=== PATIENT | male | born 1965 | race Caucasian/White ===

== ENCOUNTER 2020-02-19 07:15 | Emergency (ER) | payer MEDICARE, OTHER ==
[~2020-02-19] VITALS: Ht 182.9 cm; Wt 100.0 kg
[~2020-02-19 07:15] MED LIST: HTN MED DAILY PO
[2020-02-19] MEDS ORDERED: IV NORMAL SALINE 1,000ML 1,000 ML IV SCH (07:19)
--- NOTE | 2020-02-19 07:23 | PHYS DOC ---
Past History Past Medical History: COPD, Diabetes, Hypertension, Other Past Surgical History: No Surgical History Smoking: Cigar Alcohol Use: None General Adult EDM: Chief Complaint: chest pain HPI: HPI: Patient is a 54 year old male who presents for evaluation of chest pain that started at 4 AM today. He states he did not wake him up because he had difficulty sleeping all night. He is complaining of shortness of air and sweats as well. About 1 hour ago his pain became significantly worse. Two 81 mg dose aspirins were taken prior to arrival. Patient spouse brought him into the hospital for evaluation. Patient had cardiac testing about 1 year ago but no stress test. Other risk factors include diabetes, COPD and patient does smoke cigars. Patient does not have a known cardiac history. Patient rates his pain as 5/10 at this time Review of Systems: Review of Systems: Constitutional: Denies fever or chills Eyes: Denies change in visual acuity HENT: Denies nasal congestion or sore throat Respiratory: Denies cough has shortness of breath Cardiovascular: has chest pain no edema GI: Denies abdominal pain, has nausea, no vomiting, bloody stools or diarrhea : Denies dysuria Musculoskeletal: Denies back pain or joint pain Integument: Denies rash Neurologic: Denies headache, focal weakness or sensory changes Endocrine: Denies polyuria or polydipsia Lymphatic: Denies swollen glands Psychiatric: Denies depression or anxiety Heart Score: HEART Score for Chest Pain: HEART Score for Chest Pain Response (Comments) Value History Highly Suspicious [address] Depression 2 Age >45 - < 65 1 Risk Factors >3 Risk Factors or Hx CAD 2 Troponin >1-<3x Normal Limit 1 Total 8 Risk Factors: Risk Factors: DM, Current or recent (<one month) smoker, HTN, HLP, family history of CAD, obesity. Risk Scores: Score 0 - 3: 2.5% MACE over next 6 weeks - Discharge Home Score 4 - 6: 20.3% MACE over next 6 weeks - Admit for Clinical Observation Score 7 - 10: 72.7% MACE over next 6 weeks - Early Invasive Strategies Current Medications: Current Meds: Current Medications Medications (Trade) Dose Ordered Sig/Margo Start Time Stop Time Status Last Admin Dose Admin Aspirin (Aspirin Chewable) 162 mg 1X ONCE 02/19/20 07:30 02/19/20 07:31 UNV Morphine Sulfate (Morphine 4mg Syringe) 4 mg 1X ONCE 02/19/20 07:30 02/19/20 07:31 UNV Sodium Chloride 1,000 ml @ 100 mls/hr Q10H 02/19/20 07:19 02/19/20 17:18 UNV Allergies: Allergies: Allergies Coded Allergies Type Severity Reaction Last Updated Verified No Known Drug Allergies 12/21/13 No Physical Exam: PE: Constitutional: Well developed, well nourished, modeate distress, mild toxic appearance. [] HENT: Normocephalic, atraumatic, bilateral external ears normal, oropharynx moist, no oral exudates, nose normal. [] Eyes: PERRL, EOMI, conjunctiva normal, no discharge. [] Neck: Normal range of motion, no tenderness, supple, no stridor. [] Cardiovascular:Heart rate regular rhythm, no murmur [] Lungs & Thorax: Bilateral breath sounds clear to auscultation [] Abdomen: Bowel sounds normal, soft, no tenderness, no masses, no pulsatile masses. [] Skin: Warm, diaphoretic, no erythema, no rash. [] Back: No tenderness. [] Extremities: No tenderness, no cyanosis, no clubbing, ROM intact, no edema. [] Neurologic: Alert and oriented X 3, normal motor function, normal sensory function, no focal deficits noted. [] Psychologic: Affect normal, judgement normal, mood anxious. [] Current Patient Data: Labs: Laboratory Tests Test 02/19/20 07:22 White Blood Count 9.8 x10^3/uL Red Blood Count 4.65 x10^6/uL Hemoglobin 15.2 g/dL Hematocrit 44.2 % Mean Corpuscular Volume 95 fL Mean Corpuscular Hemoglobin 33 pg Mean Corpuscular Hemoglobin Concent 35 g/dL Red Cell Distribution Width 13.1 % Platelet Count 259 x10^3/uL Neutrophils (%) (Auto) 74 % Lymphocytes (%) (Auto) 18 % Monocytes (%) (Auto) 7 % Eosinophils (%) (Auto) 1 % Basophils (%) (Auto) 0 % Neutrophils # (Auto) 7.3 x10^3uL Lymphocytes # (Auto) 1.8 x10^3/uL Monocytes # (Auto) 0.7 x10^3/uL Eosinophils # (Auto) 0.0 x10^3/uL Basophils # (Auto) 0.0 x10^3/uL Current Medications Medications (Trade) Dose Ordered Sig/Margo Route PRN Reason Start Time Stop Time Status Last Admin Dose Admin Aspirin (Aspirin Chewable) 162 mg 1X ONCE PO 02/19/20 07:30 02/19/20 07:31 DC 02/19/20 07:33 Sodium Chloride 1,000 ml @ 100 mls/hr Q10H IV 02/19/20 07:19 02/19/20 17:18 02/19/20 07:33 Morphine Sulfate (Morphine 4mg Syringe) 4 mg 1X ONCE IV 02/19/20 07:30 02/19/20 07:31 DC 02/19/20 07:32 Ondansetron HCl (Zofran) 4 mg 1X ONCE IVP 02/19/20 07:30 02/19/20 07:31 DC 02/19/20 07:32 Nitroglycerin (Nitrostat) 0.4 mg PRN Q5MIN PRN SL CHEST PAIN 02/19/20 07:30 UNV 02/19/20 07:40 Heparin Sodium (Porcine) (Heparin Sodium) 4,000 unit 1X ONCE IV 02/19/20 07:30 02/19/20 07:31 UNV 02/19/20 07:40 EKG: EKG: EKG read at 7:[address] segment elevation in the inferior leads. This is consistent with a STEMI rate is 63 [] Radiology/Procedures: Radiology/Procedures: CXR: read by me at bedside, no acute findings[] Course & Med Decision Making: Course & Med Decision Making Pertinent Labs and Imaging studies reviewed. (See chart for details) Code STEMI activated at 7:21 AM. Patient okay with going to [facility] [] 0729 Dr. Krishnan is the accepting Superintendent Distribution at [facility]. Agreed with treatment plan. Will sent right to the geotechnical laboratory technician. EMS en route. Heparin load 4000 units, aspirin to bring him up to full dose aspirin, nitroglycerin, morphine and Zofran given 0737 EMS at bedside loading patient for transfer. 0742 EMS leaving now. Dragon Disclaimer: Dragon Disclaimer: This electronic medical record was generated, in whole or in part, using a voice recognition dictation system. Departure Departure: Impression: Primary Impression: STEMI (ST elevation myocardial infarction) Qualified Codes: I21.11 - ST elevation (STEMI) myocardial infarction involving right coronary artery Additional Impression: Elevated blood pressure reading Disposition: XF SHT-TRM HOSP (Dr. Krishnan at [facility] directly to laborer petroleum [employer]) Condition: STABLE Referrals: LOU COFFMAN DO (PCP) Justification of Admission: Justification of Admission: Justification of Admission Dx: Yes Angina: [facility] [place]: Acute STEMI Critical Care Time Critical care time was 30 minutes exclusive of procedures. SUZY MUNOZ DO Feb 19, 2020 07:23
[2020-02-19] MEDS ORDERED: MORPHINE SULFATE 4 MG/ML DISP.SYRIN. IV ONE (07:30)
[2020-02-19] MEDS ORDERED: HEPARIN for IV BOLUS 10,000 UNIT/10 ML VIAL. IV ONE (07:30)
[2020-02-19] MEDS ORDERED: ASPIRIN CHEWABLE 81 MG TABLET. PO ONE (07:30)
[2020-02-19] MEDS ORDERED: NITROGLYCERIN SUBLINGUAL 0.4 MG BOTTLE OF 25. SL PRN (07:30)
[2020-02-19] MEDS ORDERED: ONDANSETRON PF 4 MG/2 ML VIAL. IVP ONE (07:30)
[2020-02-19 07:38] LABS: BASO % 0 % (0-3); EOS % 1 % (0-3); HEMATOCRIT 44.2 % (39.0-53.0); HEMOGLOBIN 15.2 g/dL (13.0-17.5); LYMPH # 1.8 x10^3/uL (1.0-4.8); LYMPH % 18 % (24-48); MEAN CORPUSCULAR HEMOGLOBIN 33 pg (25-35); MEAN CORPUSCULAR HGB CONC 35 g/dL (31-37); MEAN CORPUSCULAR VOLUME 95 fL (79-100); MONO # 0.7 x10^3/uL (0.0-1.1); MONO % 7 % (0-9); NEUT # 7.3 x10^3uL (1.8-7.7); NEUT % 74 % (31-73); PLATELET COUNT 259 x10^3/uL (140-400); RED BLOOD COUNT 4.65 x10^6/uL (4.30-5.70); RED CELL DISTRIBUTION WIDTH 13.1 % (11.5-14.5); WHITE BLOOD COUNT 9.8 x10^3/uL (4.0-11.0)
[2020-02-19 07:40] VITALS: BP 150/100
[2020-02-19 07:46] LABS: CALCIUM 8.6 mg/dL (8.5-10.1); GFR 77.3; POTASSIUM 4.2 mmol/L (3.5-5.1)
--- NOTE | 2020-02-19 07:47 | RAD ---
PORTABLE CHEST 1V History: Reason: chest pain / Spl. Instructions: / History: Comparison: None. Findings: No consolidation or pleural effusion. Normal heart size. No pneumothorax. Impression: 1. No acute cardiopulmonary process. Electronically signed by: Russell Ambrocio DO (02/19/2020 7:45 AM) [id number]
[2020-02-19 08:02] LABS: ALBUMIN 3.9 g/dL (3.4-5.0); ALBUMIN/GLOBULIN RATIO 1.1 (1.0-1.7); TOTAL BILIRUBIN 0.3 mg/dL (0.2-1.0); TOTAL PROTEIN 7.6 g/dL (6.4-8.2)
--- NOTE | 2020-02-19 13:14 | EKG ---
[address] [address] Test Date: 2020-02-19 Test Time: 07:17:20 Pat Name: BASILIA HAMILTON Department: Room: Gender: M Shop Girl: ARIEL : 1965 Requested By: SUZY MUNOZ Order Number: [id number] Reading MD: Measurements Intervals [place] Rate: 63 P: 64 GA: 196 QRS: 49 QRSD: 90 T: 83 QT: 368 QTc: 379 Interpretive Statements SINUS RHYTHM ST ABNORMALITY, POSSIBLE LATERAL SUBENDOCARDIAL INJURY ABNORMAL ECG RI6.02 No previous ECG available for comparison
== END 2020-02-19 07:41 | disposition short-term general hospital (02) ==
LOC: ER 07:15
DX: I21.11 ST elevation (STEMI) myocardial infarction involving right coronary artery (principal); R03.0 Elevated blood-pressure reading, without diagnosis of hypertension; J44.9 Chronic obstructive pulmonary disease, unspecified; E11.9 Type 2 diabetes mellitus without complications; I10 Essential (primary) hypertension; F17.210 Nicotine dependence, cigarettes, uncomplicated
CPT/HCPCS: 36415; 71045; 80053; 82553; 84484; 85025; 93005; 96374; 96375; 99291; J1644; J2270; J2405; J7030